=== PATIENT | female | born 1985 | race Caucasian/White ===

== ENCOUNTER 2018-08-13 21:30 | Emergency (ER) | payer BC ==
[~2018-08-13] VITALS: Ht 162.6 cm; Wt 68.9 kg
--- NOTE | 2018-08-13 21:55 | NUR ---
Patient ambulated with stable gait. Speech is clear, speaks in complete sentences. A/Ox4. No neuro deficits. Patient came for s/p D&C last tuesday. She reported going for a walk earlier today and experienced severe cramps and when she went to the bathroom to urinate she visualized a large amount of blood along with blood clots in the toilet bowl. Pain diminishes when she lays down and exacerbates with ADL's. Respiratory even and unlabored, no cough no sob. Patient denies any discharge or any foul smell coming from urinary tract. Patient in bed at lowest position, sr upx2, call light within reach. Fall precautions implemented per protocol.
--- NOTE | 2018-08-13 22:00 | NUR ---
ERMD at bedside for eval
--- NOTE | 2018-08-13 22:19 | NUR ---
Patient does not wish to proceed with medical care recommended by Dr. Randolph. Patient given information related to possible complications, up to and including , which could occur as a result of leaving the hospital at this time. Patient verbalizes understanding of risks involved due to leaving against medical advice. Patient has signed AMA form.
[2018-08-13 22:26] VITALS: BP 110/84
== END 2018-08-13 22:24 | disposition left against medical advice (07) ==
LOC: ER 21:30
DX: O03.1 Delayed or excessive hemorrhage following incomplete spontaneous abortion (principal); R42 Dizziness and giddiness; Z86.2 Personal history of diseases of the blood and blood-forming organs and certain disorders involving the immune mechanism
CPT/HCPCS: A4663